=== PATIENT | female | born 1980 | race Asian ===

== ENCOUNTER 2018-04-05 13:56 | Emergency (ER) | payer OTHER ==
[~2018-04-05] VITALS: Ht 157.5 cm; Wt 50.8 kg
[2018-04-05 14:10] VITALS: Ht 157.5 cm; Wt 50.8 kg
[2018-04-05 16:05] VITALS: BP 133/84
== END 2018-04-05 16:07 | disposition home or self-care (01) ==
LOC: ED 13:56
DX: G43.909 Migraine, unspecified, not intractable, without status migrainosus (principal); Z98.890 Other specified postprocedural states
CPT/HCPCS: J1200; J2765